=== PATIENT | female | born 1945 | race Caucasian/White ===

== ENCOUNTER 2021-05-13 18:52 | Emergency (ER) | payer MEDICARE, BC ==
[2021-05-13] MEDS ORDERED: Acetaminophen 500 MG TAB ONE (19:29)
== END 2021-05-13 20:09 | disposition home or self-care (01) ==
LOC: CSHERS 18:52
DX: S62.325A Displaced fracture of shaft of fourth metacarpal bone, left hand, initial encounter for closed fracture (principal); E78.00 Pure hypercholesterolemia, unspecified; E11.9 Type 2 diabetes mellitus without complications; Z79.84 Long term (current) use of oral hypoglycemic drugs; Z79.899 Other long term (current) drug therapy; X50.1XXA Overexertion from prolonged static or awkward postures, initial encounter
CPT/HCPCS: 29125

== ENCOUNTER 2024-01-07 20:20 | Emergency (ER) | payer MEDICARE, BC ==
[2024-01-07] MEDS ORDERED: Dexamethasone 10 MG/ML VIAL ONE (21:12)
[2024-01-07] MEDS ORDERED: Ketorolac Tromethamine 30 MG (1 mL) VIAL ONE (21:12)
[2024-01-07] MEDS ORDERED: hydrALAZINE 20 MG/ML VIAL ONE (21:12)
[2024-01-07] MEDS ORDERED: Oxymetazoline HCl 0.05% ( 15 ML ) ONE (21:46)
[2024-01-07] MEDS ORDERED: diphenhydrAMINE 50 MG/ML VIAL ONE (23:11)
[2024-01-07] MEDS ORDERED: Morphine 2 MG/ML VIAL ONE (23:11)
[2024-01-07] MEDS ORDERED: Labetalol HCl 100 MG/20 ML VIAL ONE (23:13)
[2024-01-08] LABS: #Basophils 0.03 10x3/uL (0.0-0.2); #Eosinphils 0.01 10x3/uL (0.0-0.5); #Monocytes 0.29 10x3/uL (0.0-1.1); #Neutrophils 6.42 10x3/uL (1.5-8.4); %Basophils 0.4 % (0.0-2.0); %Eosinophils 0.1 % (0.0-6.0); %Lymphocytes 11.7 % (18.0-47.0); %Monocytes 3.8 % (0.0-10.0); %Neutrophils 83.5 % (40.0-75.0); Hemoglobin 12.8 g/dL (12.0-15.5); Mean Corpuscular HGB CONC 36.6 g/dL (32.0-36.0); Mean Corpuscular Hemoglobin 31.1 pg (27.0-33.0); Mean Platelet Volume 10.3 fL (7.4-10.4); Platelet Count 208 10x3/uL (150-450); RBC Distribution Width 12.1 % (11.5-14.5); Red Blood Cell (RBC) Count 4.12 10x6/uL (3.90-5.03); White Blood Cell (WBC) Count 7.7 10x3/uL (3.5-10.5)
[2024-01-08 00:08] LABS: ALT (SGPT) 39 U/L (8-55); AST (SGOT) 63 U/L (5-34); Albumin 3.7 g/dL (3.4-4.8); Alkaline Phosphatase 59 U/L (40-110); Anion Gap 13 mmol/L (10-20); BUN (Urea Nitrogen) 9 mg/dL (9.8-20.1); Bilirubin, Total 0.6 mg/dL (0.2-1.2); Calc. Creatinine Clearance 0 mL/min (70-130); Calcium 8.7 mg/dL (7.8-10.44); Carbon Dioxide 20 mmol/L (23-31); Chloride 108 mmol/L (98-107); Estimated GFR 85; Globulin 3.1 g/dL (2.4-3.5); Glucose 216 mg/dL (83-110); Potassium 3.3 mmol/L (3.5-5.1); Protein, Total 6.8 g/dL (5.8-8.1); Sodium 138 mmol/L (136-145)
[2024-01-08 00:15] LABS: Troponin I 0.013 ng/mL (< 0.028)
== END 2024-01-08 00:45 | disposition home or self-care (01) ==
LOC: CSHERS 20:20
DX: U07.1 COVID-19 (principal); I10 Essential (primary) hypertension; E11.9 Type 2 diabetes mellitus without complications; Z79.84 Long term (current) use of oral hypoglycemic drugs
CPT/HCPCS: 71045; 80053; 83605; 84484; 85025; 93005; J0360; J1100; J1200; J1885; J2272; 96361; 96374; 96375